=== PATIENT | female | born 1975 | race Two or more races ===

== ENCOUNTER 2023-10-27 08:40 | Outpatient (AMB) | payer BC, SELFPAY ==
[2023-10-27 08:41] VITALS: BP 120/80; PULSE 84; TEMP 36.9; O2SAT 98
--- NOTE | 2023-10-27 08:41 | AM.OFFWIN_ITS ---
Intake Vital Signs 10/27/23 08:41 Height 5 ft 2 in BP 120/80 Blood Pressure Location Rt brachial Position Sitting Pulse 84 Pulse Source Pulse Oximeter Temp 98.4 F Temp Source Oral Pulse Oximetry (%) 98 Intake Visit Reasons: EST/sore that congestion (lobby) Intake Note: pt is here for sore throat with congestion Patient Tobacco Use Status: Former Tobacco user Allergies erythromycin base [From Pediazole] Allergy (Mild, Verified 10/27/23 08:41) Hives sulfisoxazole [From Pediazole] Allergy (Mild, Verified 10/27/23 08:41) Hives Do you need a note to return to daycare/school/sports/work: No HPI EST/sore that congestion (lobby) HPI Details 48 year old female patient presents to [facility] clinic today with complaint of upper respiratory symptoms. She reports this started about 1-2 weeks ago with milder symptoms, however symptoms started to worsen 5 days ago. Reports sore throat, ear pressure, eye discharge/itchiness, and some chest congestion. Denies cough or shortness of breath. Has taken multiple Covid tests at home which were negative. Denies any fever or GI symptoms. Denies any known exposure to sick contacts. [facility] Social History Patient Tobacco Use Status: Former Tobacco user Review of Systems Const All systems reviewed & are unremarkable except as noted in HPI and below Physical Exam Const General: cooperative and no acute distress Nutritional Appearance: average body habitus HEENT Head: Yes normal to inspection Ears: hearing grossly normal bilaterally and TM's normal bilaterally General nose exam: Normal external nose present and Normal nares present Face and sinus: Yes normal facial exam Mouth: Normal oral and palatal mucosa present Throat: Yes posterior oropharynx normal Eyes Conjunctivae: conjunctival abnormal bilateral conjunctival injection diffuse and discharge mucoid Neck Neck: Yes no lymphadenopathy Resp Effort & Inspection: normal respiratory effort Auscultation: clear to auscultation bilaterally Cardio Rate: regular rate Rhythm: regular rhythm Skin General skin exam: no rashes or lesions noted Extrem General: Yes capillary refill normal and Yes no clubbing, cyanosis or edema Psych Appearance: grossly normal Mental Status: mental status grossly normal Speech and movement: Normal speech and movement present Results AMB Rapid Strep AMB Rapid Strep Negative Last Edit by Jorge Brar CMA on 10/27/23 09 :02 Assessment & Plan Assessment & Plan (1) Viral upper respiratory infection: Code(s): J06.9 - Acute upper respiratory infection, unspecified Plan: Symptoms consistent with viral upper resp illness. Rapid strep negative. Patient declined viral testing today. Advised conservative measures for symptom management, including otc cold/flu products, decongestants, and lozenges. Also encouraged increase in hydration and healthy food/vitamin C intake. Advised to return to the clinic if symptoms worsen or new symptoms develop. She verbalizes understanding and agrees to plan. Orders: Orders AMB Rapid Strep Screen Today Z13.9 - Encounter for screening, unspecified Coding Level of Care Code Est Pt Level 3 (70314) Diagnoses Viral upper respiratory infection J06.9
== END 2023-10-27 09:10 | disposition home or self-care (01) ==
PROVIDERS: PCP Internal Medicine; Visit Provider Nurse Practitioner Family
DX: J06.9 Acute upper respiratory infection, unspecified (principal)
CPT/HCPCS: 87880; 99213